=== PATIENT | female | born 1990 | race Caucasian/White ===

== ENCOUNTER 2022-06-14 14:31 | Emergency (ER) | payer OTHER, SELFPAY ==
--- NOTE | 2022-06-14 14:35 | ED.URI ---
HPI - URI/Sore Throat General Chief Complaint: Upper Respiratory Infection Stated Complaint: ear infection throat pain Time Seen by Provider: 06/14/22 14:35 Source: patient and RN notes reviewed History of Present Illness HPI Narrative: patient is a 32-year-old female who presents to the Urgent Care with complaints of left ear pain and sore throat for 2 days. Patient denies any fever, body aches, nausea or vomiting. Patient has been taking Tylenol without much relief. Patient denies any ill exposures. No other acute complaints. No acute distress noted. Patient aware of the plan of care. Some parts of this dictation were generated by voice recognition software and may contain typographical and/or grammatical inaccuracies. Related Data Allergies Allergy/AdvReac Type Severity Reaction Status Date / Time No Known Allergies Allergy Unverified 01/12/19 06:07 Review of Systems Review of Systems: CONSTITUTIONAL: Denies fever, chills, or sweats. EYES: Denies visual changes, redness, or discharge. ENT: Denies rhinorrhea, congestion . Reports of left otalgia and sore throat CARDIOVASCULAR: Denies chest pain, palpitations, or edema. RESPIRATORY: Denies cough or dyspnea. GASTROINTESTINAL: Denies abdominal pain, nausea, vomiting, or diarrhea. GENITOURINARY: Denies dysuria or hematuria. SKIN: Denies rash or itching. MUSCULOSKELETAL: Denies back pain, joint pain, or myalgia. NEUROLOGIC: Denies headache, numbness, or weakness. All other systems reviewed are negative, except as documented in HPI. PMFSH Comments At the time of my signature, I reviewed and agree with the nursing past medical, surgical, social, and family history. There is no relevant family history pertinent to the patient complaint. Exam Narrative: GENERAL: This is a well-nourished, well-developed patient, in no apparent distress. HEAD: normocephalic, atraumatic. EYES: PERRL. Sclera clear/white. Vision is grossly intact. EARS: External ears normal, auditory canals clear and without drainage, TMs normal without perforation. Hearing grossly intact. NOSE: External nose normal with no obvious nasal discharge, nares without redness, no rhinorrhea. THROAT: Mucous membranes moist, mild erythema noted to posterior oropharynx with mild exudate to the left. moderate postnasal drainage. NECK: Neck supple, non-tender without lymphadenopathy CARDIOVASCULAR: Regular rate and rhythm without murmurs, gallops, or rubs. RESPIRATORY: Clear to auscultation. Breath sounds equal bilaterally. No wheezes, rales, or rhonchi. SKIN: warm, intact with no suspicious lesions or rash, good texture and turgor. NEURO: awake, alert, and oriented to person, place and time. There were no obvious focal neurologic abnormalities. EXTREMITIES: No clubbing, cyanosis, or edema. Course Course Level of Care: Express Care Visit Vital Signs Vital signs: Vital Signs Temperature 98.6 F 06/14/22 14:48 Pulse Rate 87 06/14/22 14:48 Respiratory Rate 16 06/14/22 14:48 Blood Pressure 149/92 H 06/14/22 14:48 Pulse Oximetry 100 06/14/22 14:48 Oxygen Delivery Room Air 06/14/22 14:48 Temperature 98.6 F 06/14/22 14:48 Pulse Rate 87 06/14/22 14:48 Respiratory Rate 16 06/14/22 14:48 Blood Pressure 149/92 H 06/14/22 14:48 Pulse Oximetry 100 06/14/22 14:48 Oxygen Delivery Room Air 06/14/22 14:48 Reviewed- Patient is informed that they may have pre-hypertension or hypertension based on a blood pressure reading in the department. I recommend the patient call the primary care provider listed on their discharge instructions or a physician of their choice this week to arrange follow-up for further evaluation of possible pre-hypertension or hypertension. MDM - URI/Sore Throat MDM Narrative Medical decision making narrative: due to the lack of resources, our facility does not currently have a rapid strep test. Therefore we will culture urine strep and call if medication is nece
[2022-06-14 14:48] VITALS: BP 149/92; PULSE 87; RESP 16; TEMP 37; O2SAT 100
== END 2022-06-14 15:31 | disposition home or self-care (01) ==
PROVIDERS: Emergency Provider Nurse Practitioner Family
DX: J02.9 Acute pharyngitis, unspecified (principal)
CPT/HCPCS: 87081; 99203; G0463